=== PATIENT | male | born 1935 | race Two or more races ===

== ENCOUNTER → 2025-07-30 | Emergency (ER) | payer OTHER ==
[~2025-07-30] VITALS: Ht 167.6 cm; Wt 70.8 kg
[~2025-07-30] MED LIST: ALTACE10 MG PO; CEFTRIAXONE SODIUM 1,000 MG VIAL IM ONE; CEFTRIAXONE SODIUM 1,000 MG VIAL ONE; CRESTOR20 MG PO; HORIZANT300 MG PO; NIFEDIPINE20 MG; PEPCID AC10 MG PO
== END | disposition home or self-care (01) ==
LOC: ER 14:09
DX: L08.9 Local infection of the skin and subcutaneous tissue, unspecified (principal); T14.8XXA Other injury of unspecified body region, initial encounter; I10 Essential (primary) hypertension
CPT/HCPCS: 96372; 99282; J0696